=== PATIENT | male | born 1945 | race Native Hawaiian/Other Pacific Islander ===

== ENCOUNTER 2017-05-23 19:20 | Emergency (ER) | payer MEDICARE, OTHER ==
--- NOTE | 2017-05-23 22:20 | CT ---
EXAM: CT Head Without Intravenous Contrast CLINICAL HISTORY: 71 years old, male; Injury or trauma; Injury Object dropped on head; Initial encounter; Abrasion; Scalp; Additional info: Dizziness TECHNIQUE: Axial computed tomography images of the head/brain without intravenous contrast. This CT exam was performed using one or more of the following dose reduction techniques: automated exposure control, adjustment of the mA and/or kV according to patient size, and/or use of iterative reconstruction technique. EXAM DATE/TIME: 05/23/2017 8:22 PM COMPARISON: There are no prior studies for comparison. FINDINGS: Brain: There is dilatation of sulci gyri and ventricles. There is no midline shift. There is decreased attenuation in periventricular white matter. There are no focal masses. There are no focal hemorrhages. Garrison-white differentiation is visualized. Ventricles: See above. Bones: Cranial vault is intact. There is mild deformity of the left zygoma, age-indeterminate. Soft tissues: unremarkable Sinuses: There is no acute sinusitis. Ears and mastoids: Middle ears and mastoids are unremarkable. Orbits: Orbital contents are unremarkable. IMPRESSION: Atrophy and small vessel disease, no acute intracranial abnormality
--- NOTE | 2017-05-23 22:28 | CT ---
EXAM: CT Maxillofacial Without Intravenous Contrast CLINICAL HISTORY: 71 years old, male; Pain; Jaw pain and maxilla pain; Additional info: Head trauma, moderate tmj pain TECHNIQUE: Axial computed tomography images of the face without intravenous contrast. This CT exam was performed using one or more of the following dose reduction techniques: automated exposure control, adjustment of the mA and/or kV according to patient size, and/or use of iterative reconstruction technique. Coronal and sagittal reformatted images were created and reviewed. EXAM DATE/TIME: 05/23/2017 8:31 PM COMPARISON: There are no prior studies for comparison. FINDINGS: Bony structures: There is deformity of the left mandibular condyle which appears old. There is deformity of the left zygomatic arch which appears old. No acute displaced facial bone fractures are identified. The Brain: No acute abnormalities are seen in visualized portion of the brain. Ears and mastoids: Middle ears and mastoids are well-aerated. Orbits: Orbital contents are unremarkable. Sinuses: There is no acute sinusitis. Soft tissues: There are no facial masses. Airway: Airway is unremarkable. IMPRESSION: No acute facial bone fracture; probable old healed left mandibular condyle and left zygomatic arch fractures
--- NOTE | 2017-05-23 22:38 | C.PDOC ---
History Of Present Illness The patient, a 71 y/o male, presents to the ED for evaluation of a head injury which he sustained earlier today. Patient states he was playing with his dog when he suddenly tripped and fell backwards, and hit the back of his head on the concrete floor. Patient reports headache and jaw pain that is worse when he opens his mouth. He denies LOC, dizziness, vision change, nausea, vomiting. - HPI Time Seen by Provider: 05/23/17 20:22 Chief Complaint (Nursing): Trauma History Per: Patient History/Exam Limitations: no limitations Onset/Duration Of Symptoms: Hrs Location Of Injury: Posterior: Head Additional History Per: Patient - Fall Fall:Prior To Injury: Lost Balance (fell backwards ) Past Medical History Reviewed: Historical Data, Nursing Documentation, Vital Signs Vital Signs: Last Vital Signs Temp 97.8 F 05/23/17 22:46 Pulse 62 05/23/17 22:46 Resp 20 05/23/17 22:46 BP 128/76 05/23/17 22:46 Pulse Ox 97 05/24/17 00:43 - Medical History PMH: Diabetes (NIDDM) Surgical History: No Surg Hx - [facility] Procedures APPLICATION OF SPLINT (04/20/15) Family History: States: Unknown Family Hx - Social History Hx Tobacco Use: No Hx Alcohol Use: No Hx Substance Use: No - Immunization History Hx Tetanus Toxoid Vaccination: No Hx Influenza Vaccination: No Hx Pneumococcal Vaccination: No Review Of Systems Eyes: Negative for: Vision Change ENT: Positive for: Other (+jaw pain ) Gastrointestinal: Negative for: Nausea, Vomiting Neurological: Positive for: Headache. Negative for: Dizziness, Other (LOC ) Physical Exam - Physical Exam Appears: Non-toxic, No Acute Distress Skin: Normal Color, Warm, Dry Head: Normacephalic, Tenderness (to b/l temporomadibular joints. no trismus or facial tenderness ), No Swelling (facial ), Other (+hematoma, large abrasion to mid-posterior scalp region. pain with movement of mandible ) Eye(s): bilateral: Normal Inspection, PERRL, EOMI Oral Mucosa: Moist Neck: Supple Chest: Symmetrical, No Deformity, No Tenderness Cardiovascular: Rhythm Regular Respiratory: Normal Breath Sounds Back: Normal Inspection Extremity: Normal ROM, Capillary Refill (less than 2 seconds ) Neurological/Psych: Oriented x3, Normal Speech, Normal Cognition Gait: Steady ED Course And Treatment O2 Sat by Pulse Oximetry: 97 (on RA) Pulse Ox Interpretation: Normal - CT Scan/US CT Maxillofacial Other Rad Studies (CT/US): Interpreted By Me, Read By Radiologist, Radiology Report Reviewed CT/US Interpretation: . . CT Scan. . . MAXILLOFACIAL W/O CONTRAST Exam Date: 05/23/17. . This imaging exam was performed at [facility]. EXAM: CT Maxillofacial Without Intravenous Contrast. . CLINICAL HISTORY: 71 years old, male; Pain; Jaw pain and maxilla pain; Additional info: Head. trauma, moderate tmj pain. . TECHNIQUE: Axial computed tomography images of the face without intravenous contrast. This CT exam was performed using one or more of the following dose reduction. techniques: automated exposure control, adjustment of the mA and/or kV. according to patient size, and/or use of iterative reconstruction technique. Coronal and sagittal reformatted images were created and reviewed. . EXAM DATE /TIME: 05/23/2017 8:31 PM. . COMPARISON: There are no prior studies for comparison. . FINDINGS: . Bony structures: There is deformity of the left mandibular condyle which. appears old. There is deformity of the left zygomatic arch which appears old. No acute displaced facial bone fractures are identified. The. . Brain: No acute abnormalities are seen in visualized portion of the brain. Ears and mastoids: Middle ears and mastoids are well- aerated. Orbits: Orbital contents are unremarkable. Sinuses: There is no acute sinusitis. Soft tissues: There are no facial masses. Airway: Airway is unremarkable. . IMPRESSION: No acute facial bone fracture; probable old healed left mandibular. condyle and left zygomatic arch fractures. CT Head Other Rad Studies (CT/US): Interpreted By Me, Read By Radiologist, Radiology Report Reviewed CT/US Interpretation: CT Scan. . HEAD W/O CONTRAST Exam Date: 05/23/17. . This imaging exam was performed at [facility]. EXAM: CT Head Without Intravenous Contrast. . CLINICAL HISTORY: 71 years old, male; Injury or trauma; Injury Object dropped on head; Initial. encounter ; Abrasion; Scalp; Additional info: Dizziness. . TECHNIQUE: Axial computed tomography images of the head/brain without intravenous. contrast. This CT exam was performed using one or more of the following dose. reduction techniques: automated exposure control, adjustment of the mA and/or. kV according to patient size, and/or use of iterative reconstruction technique. . EXAM DATE/TIME: 05/23/2017 8:22 PM. . COMPARISON: There are no prior studies for comparison. . FINDINGS: Brain: There is dilatation of sulci gyri and ventricles. There is no midline. shift. There is decreased attenuation in periventricular white matter. There. are no focal masses. There are no focal hemorrhages. Garrison-white differentiation. is visualized. Ventricles: See above. . Bones: Cranial vault is intact. There is mild deformity of the left zygoma,. age-indeterminate. Soft tissues: unremarkable. Sinuses: There is no acute sinusitis. . Ears and mastoids: Middle ears and mastoids are unremarkable. Orbits: Orbital contents are unremarkable. . IMPRESSION: Atrophy and small vessel disease, no acute intracranial. abnormality Progress Note: CT head and CT Maxillofacial ordered and reviewed. Patient refused Tetanus immunization upon offering. Patient received Tylenol PO. On reassessment, patient is resting comfortably, showing no signs of distress and is stable for discharge. Patient is advised to follow up with his PMD within 1- 2 days for further evaluation or return to the ED if symptoms worsen. Pt understands and agrees to plan Disposition Counseled Patient/Family Regarding: Studies Performed, Diagnosis, Need For Followup, Rx Given - Disposition Disposition: HOME/ ROUTINE Disposition Time: 22:35 Condition: STABLE Additional Instructions: Follow instructions for head injury precautions Tylenol as needed for pain Return to ER if worse Instructions: Head Injury (ED), Scalp Contusion in Adults (ED) - Clinical Impression Clinical Impression: Head injury due to trauma, Scalp hematoma, Scalp abrasion - PA / SURVEILLANCE OFFICER / Resident Statement MD/DO has reviewed & agrees with the documentation as recorded. - Scribe Statement The provider has reviewed the documentation as recorded by the Scribe (Ciarra Valenzuela) All medical record entries made by the Scribe were at my direction and personally dictated by me. I have reviewed the chart and agree that the record accurately reflects my personal performance of the history, physical exam, medical decision making, and the department course for this patient. I have also personally directed, reviewed, and agree with the discharge instructions and disposition.
[2017-05-23 22:47] VITALS: BP 128/76; PULSE 62; RESP 20; TEMP 97.8
[2017-05-24 00:28] VITALS: O2SAT 97
== END 2017-05-23 22:49 | disposition home or self-care (01) ==
LOC: C.ER 19:20
DX: S00.03XA Contusion of scalp, initial encounter (principal); S00.01XA Abrasion of scalp, initial encounter; W01.198A Fall on same level from slipping, tripping and stumbling with subsequent striking against other object, initial encounter